=== PATIENT | female | born 1960 | race Caucasian/White ===

== ENCOUNTER → 2018-10-14 | Outpatient (CLI) | payer OTHER ==
[~2018-10-14] MED LIST: ALBU90OI; ALBU90OI INH; ALBU90OI6 INH; AMOX500 PO; ANTIDEPRESSANT; BP MED; BUSP15 PO; CARV25 PO; CEPH500 PO; CHOLESTEROL MED; CLIN300 PO; DESV50 PO; DOXY100 PO; ENOX100I SC; FLUO20; FLUSAL2505 IH; FLUSAL2505 INH; FLUT44OIA INH; HYDACE5 PO; HYDACE5325 PO; HYDCHL25 PO; HYDPAM50 PO; IBUP800 PO; LAMO100 PO; LORA10ER PO; Lamictal100 MG PO; MECL25 PO; MONT10T PO; Norco 10-325 T1 EACH PO; ONDA4 PO; OXYACE5T PO; POTCIT10 PO; PSEUDOEPHEDRINE PO; RXHYDACE PO; SIMV80 PO; Sudogest30 MG PO; Ventolin Soln3 ML INH; WARF5 PO
== END | disposition home or self-care (01) ==
LOC: LAB SHORT 12:36 → LAB 12:36
PROVIDERS: Nurse Practitioner Family
DX: Z01.419 Encounter for gynecological examination (general) (routine) without abnormal findings (principal)
CPT/HCPCS: G0123

== ENCOUNTER 2021-01-14 22:21 | Emergency (ER) | payer OTHER ==
[~2021-01-14] VITALS: Ht 165.1 cm; Wt 95.2 kg
== END 2021-01-15 01:40 | disposition left against medical advice (07) ==
LOC: ER 22:21
DX: Z53.21 Procedure and treatment not carried out due to patient leaving prior to being seen by health care provider (principal)